=== PATIENT | female | born 1980 | race Caucasian/White ===

== ENCOUNTER 2023-03-06 18:10 | Emergency (ER) | payer BC, OTHER ==
[2023-03-06 18:24] VITALS: BP 153/63; TEMP 97.8; BMI 46.9
[2023-03-06 20:21] VITALS: PULSE 72; RESP 18
== END 2023-03-06 20:21 | disposition home or self-care (01) ==
LOC: JERFT 18:10
DX: R05.9 Cough, unspecified (principal); R09.81 Nasal congestion; J06.9 Acute upper respiratory infection, unspecified; Z20.822 Contact with and (suspected) exposure to COVID-19
CPT/HCPCS: 0241U-QW; 99283-25